=== PATIENT | female | born 2005 | race Caucasian/White ===

== ENCOUNTER 2024-03-12 19:53 | Emergency (ER) | payer BC, SELFPAY ==
--- NOTE | ~2024-03-12 | CT_ITS ---
Non-contrast Head CT History: Head injury Technique: Axial non-contrast imaging of the brain was performed. Dose reduction technique was used on this scan by utilizing automated exposure control and iterative reconstruction technique. The dose -length product (DLP) was 681.00 mGy-cm. Findings: There is no evidence of intracranial hemorrhage, mass lesion, or acute infarct. Brain par enchyma appears normal. The ventricles and subarachnoid spaces are normal in size. The calvarium ap pears normal. The visualized paranasal sinuses and mastoid air cells are clear. Impression: No significant abnormality seen. Reviewed, dictated and finalized at location . Impression: No significant abnormality seen.
[2024-03-12 20:09] VITALS: BP 138/80; PULSE 96; RESP 20; TEMP 36.8; O2SAT 100
--- NOTE | 2024-03-12 23:30 | ED.GENADULT ---
HPI - General Adult General Chief complaint: Head Injury Stated complaint: head injury Time Seen by Provider: 03/12/24 21:47 History of Present Illness HPI narrative: Patient is a 18-year-old female who presents to the emergency department this evening complaining of a headache after head injury while she was playing soccer. Patient states that she got hit with a soccer at the back of her head. This caused the patient to fall forward. Patient states she does not remember falling forward and believes that she may have blacked out for a few seconds. Patient was able to get back up on walk over to the bench and sit down after this has happened. Admits that she felt nauseous but denies any vomiting episodes. She is currently denying any neck pain or any additional injuries or concerns. Patient admits that she does have a headache but states that while waiting in the emergency department her headache has improved and her nausea has disappeared. No additional symptoms or concerns at this time. Related Data Allergies Allergy/AdvReac Type Severity Reaction Status Date / Time gluten Allergy Intermediate Nausea and Verified 03/12/24 20:12 Vomiting peanut Allergy Anaphylaxis Verified 03/12/24 20:12 shellfish derived Allergy Other Verified 03/12/24 20:12 Review of Systems Review of Systems: All systems are reviewed and are negative unless stated otherwise in the HPI. Exam Narrative: General: Alert, awake, afebrile, in no acute distress. HEENT: PERRL, no rhinorrhea, no post nasal drip, oropharynx clear. Cardiovascular: Regular rate and rhythm, no murmurs, rubs or gallops, no peripheral edema. Respiratory: Clear to auscultation bilaterally, no tachypnea, no wheezing, no rhonchi, no rubs, no respiratory distress. Abdomen: Soft, nontender, nondistended, no rebound, no guarding, no peritoneal signs. Musculoskeletal: No joint swelling or deformity, normal muscle tone. Skin: No rashes or petechia, no signs of infection. Neurological: Alert and oriented to person, place, and time. Follows all commands. No focal deficits, 5/5 motor strength in the bilateral upper and lower extremity, sensation intact bilateral upper and lower extremity, cranial nerves 2-12 grossly intact, speech is clear and fluent. Course Vital Signs Vital signs: Vital Signs Temperature 98.2 F 03/12/24 20:09 Pulse Rate 96 03/12/24 20:09 Respiratory Rate 20 03/12/24 20:09 Blood Pressure 138/80 03/12/24 20:09 Pulse Oximetry 100 03/12/24 20:09 Oxygen Delivery Room Air 03/12/24 20:09 Temperature 98.2 F 03/12/24 20:09 Pulse Rate 96 03/12/24 20:09 Respiratory Rate 20 03/12/24 20:09 Blood Pressure 138/80 03/12/24 20:09 Pulse Oximetry 100 03/12/24 20:09 Oxygen Delivery Room Air 03/12/24 20:09 Medical Decision Making MDM Narrative Medical decision making narrative: The patient was evaluated by myself in the emergency department. History is obtained from patient who is an independent historian and physical exam was performed. External medical records were reviewed at this time. Patient was administered 650 mg of oral Tylenol for headache. Imaging studies obtained included CT brain without IV contrast which was independently interpreted by me revealing no acute intracranial process, which is pending final radiology interpretation. Differential diagnosis considerations include head injury, intracranial hemorrhage, concussion. Comorbidities impacting this visit include none. I have evaluated and discussed social determinants of health with the patient that could potentially impact subsequent diagnosis and treatment plans. On repeat assessment of the patient, reevaluation revealed that the patient is doing well and is in no acute distress. Patient symptoms have improved since she arrived to our emergency department. Repeat vital signs were all reviewed and noted to be stable. Differential diagnosis and treatment monika
[2024-03-13] MEDS: ACETAMINOPHEN 325 MG TABLET 650 MG PO (01:03)
== END 2024-03-13 01:06 | disposition home or self-care (01) ==
PROVIDERS: Emergency Provider Emergency Medicine; PCP Pediatrics
DX: S09.90XA Unspecified injury of head, initial encounter (principal); W21.02XA Struck by soccer ball, initial encounter; Y93.66 Activity, soccer
CPT/HCPCS: 70450; 99284; A9270

== ENCOUNTER 2025-04-01 17:29 | Emergency (ER) | payer BC, SELFPAY ==
[2025-04-01 17:39] VITALS: BP 123/72; PULSE 100; RESP 18; TEMP 36.9; O2SAT 100
--- NOTE | 2025-04-01 17:42 | ED.GENADULT ---
HPI - General Adult General Chief complaint: Upper Respiratory Infection Stated complaint: Sinus Infection Symptoms Time Seen by Provider: 04/01/25 17:42 Source: patient Mode of arrival: ambulatory Limitations: no limitations History of Present Illness HPI narrative: 1-year-old female patient presents to the [facility] with complaints of cold symptoms for the past 3-4 days. Patient states she visited friend's house last week and had a CT and she is allergic to cats and states it did flare up some of her allergies and asthma but states that she has started feeling fine earlier in the week. Patient states that her symptoms she felt like returned this past with congestion, sore throat and states that she has had some yellow nasal drainage. Patient states her ears feel full at times. Denies any fevers body aches or chills. Denies abdominal pain nausea vomiting or diarrhea. Patient states she does take Claritin daily. Related Data Home Medications ?Medication ?Instructions ?Recorded ?Confirmed ?Last Taken ?Type albuterol sulfate 90 mcg/actuation inhalation 04/01/25 Unknown History aerosol inhaler dupilumab 300 mg/2 mL subcutaneous mg subcut 04/01/25 Unknown History syringe (Dupixent) Allergies Allergy/AdvReac Type Severity Reaction Status Date / Time gluten Allergy Intermediate Nausea and Verified 04/01/25 17:38 Vomiting peanut Allergy Anaphylaxis Verified 04/01/25 17:38 shellfish derived Allergy Other Verified 04/01/25 17:38 Review of Systems Review of Systems: CONSTITUTIONAL: Denies fever, chills, or sweats. EYES: Denies visual changes, redness, or discharge. ENT: Positive rhinorrhea, congestion, sore throat, and bilateral otalgia. CARDIOVASCULAR: Denies chest pain, palpitations, or edema. RESPIRATORY: Denies cough or dyspnea. GASTROINTESTINAL: Denies abdominal pain, nausea, vomiting, or diarrhea. GENITOURINARY: Denies dysuria or hematuria. SKIN: Denies rash or itching. MUSCULOSKELETAL: Denies back pain, joint pain, or myalgia. NEUROLOGIC: Denies headache, numbness, or weakness. PSYCHIATRIC: Denies anxiety or depression. [facility] Past Medical History Medical History Celiac disease Asthma Comments At the time of my signature I agree with nursing past medical history, surgical, social, and family history. There is no relevant family history pertinent to the presenting complaint. Exam Narrative: GENERAL: Well-appearing, well-nourished, and in no acute distress. HEAD: Normocephalic, atraumatic. EYES: PERRLA and EOMI. ENT: Nares with erythema edema noted bilaterally, no rhinorrhea or epistaxis. Mucous membranes moist. posterior pharynx with some postnasal drip noted but no tonsillar enlargement no exudates or lesions present. Bilateral TMs are clear no erythema foreign bodies the canal. NECK: Supple. No lymphadenopathy CHEST: Clear to auscultation. No respiratory distress. HEART: Regular rate and rhythm. No murmur heard. Normal peripheral pulses. ABDOMEN: Soft, nontender, nondistended, normal active bowel sounds. EXTREMITIES: Normal range of motion. No edema. SKIN: Warm, dry, no rash. NEURO: No focal deficits. Alert and oriented x3. Course Course Level of Care: Express Care Visit Reevaluation(s) Reevaluation #1: Re-evaluated patient notified her that her point of care testing today is negative. Discussed with patient to take [id number] medications to help with her symptoms and I will give her work note for tomorrow. Patient verbalized understanding denies any other questions or concerns at this time. Date: 04/01/25 Time: 18:15 Vital Signs Vital signs: Vital Signs Oxygen Delivery Room Air 04/01/25 17:38 Temperature 36.9 C 04/01/25 17:39 Pulse Rate 100 04/01/25 17:39 Respiratory Rate 18 04/01/25 17:39 Blood Pressure 123/72 04/01/25 17:39 Pulse Oximetry 100 04/01/25 17:39 Oxygen Delivery Room Air 04/01/25 17:38 vital signs reviewed. Medical Decision Making MDM Narrative Medical decision making narrative: plan care patient is to do point of care testing for strep, influenza and COVID. These are all negative most likely will discharge home with symptomatic care. I will reassess patient once this has resulted. Differential Diagnosis Differential Diagnosis: Differential diagnosis: Allergic rhinitis, chronic sinusitis, tonsillitis, acute sinusitis, infectious mononucleosis, seasonal influenza, pertussis, diphtheria, meningococcal disease, viral syndrome, viral bronchitis, RSV, COVID-19 Vital Signs Vital Signs: Vital Signs Oxygen Delivery Room Air 04/01/25 17:38 Temperature 36.9 C 04/01/25 17:39 Pulse Rate 100 04/01/25 17:39 Respiratory Rate 18 04/01/25 17:39 Blood Pressure 123/72 04/01/25 17:39 Pulse Oximetry 100 04/01/25 17:39 Oxygen Delivery Room Air 04/01/25 17:38 Lab Data Labs: Lab Results 04/01/25 Range/Units 18:02 POC Grp A Strep Screen Negative (Negative) Critical Care Time Critical Care Time Critical Care Time: No Discharge Plan Discharge Clinical Impression: Viral URI, Acute viral sinusitis Patient Disposition: Home Condition: Stable Instructions: Antibiotic Form, Viral Syndrome (ED) Additional Instructions: Viral illness may last between 7-12days; antibiotic is NOT recommended at this time. Recommend antihistamine such as Benadryl at night time and Claritin/Zyrtec/Bhumi during the day Cough syrup may cause drowsiness; avoid driving or take it at night time. increased vitamins including vitamin-C, 2000 mg in the morning is 2000 mg in the evening. Vitamin-D 2000 IUs daily and 50 mg of vanc daily for 1 week to help boost her immune system. Also, recommend symptomatic treatment includes: rest, fluids, and increase humidity of the air at home. Recommend Acetaminophen or nonsteroidal anti-inflammatory agents (NSAIDs) as directed in the bottle to reduce fever and/pain/headache. Avoid smoking/second-hand smoke. Limit visits to areas with large crowds. Please schedule a follow-up visit with your personal physician for further evaluation and treatment within 3-5days. Including recheck and discussion of your blood pressure. If your symptoms persist, change or worsen significantly before you can contact your personal physician then please, without delay, go to the emergency department for further evaluation. Patient Language: Armenian Prescriptions: No Action albuterol sulfate 90 mcg/actuation HFA aerosol inhaler INHALATION Dupixent Syringe 300 mg/2 mL syringe SUBCUT Follow-up/Referrals: PHYSICIAN,[facility]MER [Primary Care Provider, Internal Medicine] Stand Alone Forms: Work/School Release IP Time of Disposition: 18:11
[2025-04-01 18:04] LABS: EDSTREPNEGPOS1 Negative (Negative)
[2025-04-01 18:11] LABS: EDCOVIDSCREEN Negative (Negative); EDINFLUASCREEN Negative (Negative); EDINFLUBSCREEN Negative (Negative)
== END 2025-04-01 18:14 | disposition home or self-care (01) ==
PROVIDERS: Emergency Provider Nurse Practitioner Family
DX: J06.9 Acute upper respiratory infection, unspecified (principal); J01.90 Acute sinusitis, unspecified; Z20.822 Contact with and (suspected) exposure to COVID-19; K90.0 Celiac disease; J45.909 Unspecified asthma, uncomplicated
CPT/HCPCS: 87081; 87426; 87804; 87880; 99213; G0463